=== PATIENT | male | born 1950 | race Caucasian/White ===

== ENCOUNTER 2021-05-30 10:53 | Emergency (ER) | payer OTHER, MEDICARE, SELFPAY ==
[2021-05-30 11:09] VITALS: BP 222/94; PULSE 72; RESP 16; TEMP 36.8; O2SAT 97; BMI 23.0
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
--- NOTE | 2021-05-30 11:42 | CT_ITS ---
WS: [id number] CT ABDOMEN PELVIS TECHNIQUE: Contrast-enhanced CT of the abdomen and pelvis with coronal and sagittal reformatted image s. CLINICAL INFORMATION: bilateral inguinal hernias COMPARISON: None. DLP: 1170.[address] scans at [facility] use at least one of these dose optimization techniques: automated e xposure control; mA and/or kV adjustment per patient size (includes targeted exams where dose is matc hed to clinical indication); or iterative reconstruction. FINDINGS: Bilateral inguinal hernias containing nonobstructed loops of colon extending into the scrotum. No geovanna dence of ischemia or fluid. No evidence of bowel obstruction or pneumatosis. Diffuse fatty infiltration of the liver. RIGHT hepatic cyst measuring 12 mm. Normal portal vein and s plenic vein. Normal gallbladder. Splenic granulomas. Small esophageal hiatal hernia. Emphysematous ch anges in the lung bases. Adrenal glands are normal. Normal renal parenchymal enhancement. No hydronep hrosis. Bilateral renal cysts largest RIGHT upper pole measuring 4.6 x 4.2 CM. Normal pancreatic parenchymal enhancement. Normal celiac and SMA. Mild aortic calcification. Slightly aneurysmal distal abdominal aorta measuring 2.0 x 2.1 cm AP by transverse. No periaortic or inguinal lymphadenopathy. No inguinal lymphadenopathy. Enlarged prostate with calcif ication. Prostate measures 4.7 CM. Small fat-containing umbilical hernia. Disc space narrowing worse L5-S1. Intramedullary fabio and screw fixation RIGHT hip. IMPRESSION: 1. Bilateral inguinal hernias containing loops of colon bilaterally extending into the scrotum. No e vidence of bowel obstruction or ischemia. No pneumatosis. No associated free fluid. 2. No evidence of small or large bowel obstruction. 3. Enlarged prostate measuring 4.8 cm. Recommend correlation PSA. 4. Small esophageal hiatal hernia. 5. Simple bilateral renal cysts. 6. No other acute findings.
[2021-05-30 12:20] LABS: Basophils # 0.1 10^3/uL (0.0-0.1); Basophils % 0.9 %; Eosinophils # 0.3 10^3/uL (0.0-0.8); Eosinophils % 3.7 %; Hematocrit 39.8 % (42.0-52.0); Hemoglobin 13.3 g/dL (11.7-16.6); Lymphocytes # 1.8 10^3/uL (0.8-4.8); Lymphocytes % 21.5 %; Mean Corpuscular HGB Conc 33.4 g/dL (30.0-36.0); Mean Corpuscular Volume 86.7 fl (80-94); Mean Platelet Volume 9.3 fL (7.4-10.4); Monocytes # 0.4 10^3/uL (0.2-0.9); Monocytes % 5.1 %; Neutrophils # 5.86 10^3/uL (1.8-7.7); Neutrophils % 68.4 %; Nucleated Red Blood Cells % 0 %; Platelet Count 284 10^3/cmm (130-400); Red Blood Count 4.59 10^6/uL (4.1-5.3); White Blood Count 8.6 10^3/uL (4.0-10.0)
[2021-05-30 12:35] LABS: Lactate (Lactic Acid level) 1.6 mmol/L (0.5-2.2)
[2021-05-30 12:51] LABS: Alanine Aminotransferase 12 U/L (0-41); Alkaline Phosphatase 78 IU/L (40-130); Anion Gap 17.6 (5-19); Aspartate Amino Transferase 17 U/L (0-40); Blood Urea Nitrogen 20 mg/dL (8-23); Calcium 9.7 mg/dL (8.5-10.5); Carbon Dioxide 22 mmol/L (22-29); Chloride 99 mmol/L (98-107); Globulin 3.7 g/dL (1.3-4.6); Glomerular Filtration Rate 111.5 mL/min (90-130); Glucose 127 mg/dL (65-115); Osmolality Calculated 282 mOsm/kg (285-295); Potassium 4.6 mmol/L (3.5-5.1); Sodium 134 mmol/L (136-145); Total Bilirubin 0.3 mg/dL (0.15-1.2); Total Protein 7.7 g/dL (6.6-8.7)
[2021-05-30] MEDS: iohexol 300 mg/mL 100 mL Btl IV (13:26)
[2021-05-30 14:46] VITALS: BP 160/69; PULSE 50; RESP 14; TEMP 36.6; O2SAT 98
[2021-05-30 15:34] VITALS: BP 164/74; PULSE 60; RESP 15; TEMP 36.7; O2SAT 97
--- NOTE | 2021-05-31 09:10 | DCPLANNER ---
Addendum entered by Lucille Sherman 06/11/21 06:36: Radha from [facility] General Surgery emailed clinical case manager stating that clinic was unable to reach patient to schedule a followup appointment. Phone numbers in chart are disconnected. Original Note: program manager had message to schedule a follow up appointment for patient with general surgery. program manager emailed patients information to Radha Zayas and Jessica at [facility] General Surgery / ENT clinic. Patients information will be printed and reviewed. Clinic will call patient with appointment information.
== END 2021-05-30 15:20 | disposition home or self-care (01) ==
PROVIDERS: Emergency Provider Emergency Medicine; PCP Family Medicine
DX: K40.20 Bilateral inguinal hernia, without obstruction or gangrene, not specified as recurrent (principal); I10 Essential (primary) hypertension; Z89.612 Acquired absence of left leg above knee
CPT/HCPCS: 74177; 80053; 83605; 85025; 99283; Q9967

== ENCOUNTER → 2021-06-17 13:03 | Outpatient (BNVA) | payer OTHER, SELFPAY | PROVIDERS: PCP Family Medicine; Referring Provider Nurse Practitioner; Visit Provider Surgery | DX: K40.20 Bilateral inguinal hernia, without obstruction or gangrene, not specified as recurrent (principal); Z20.822 Contact with and (suspected) exposure to COVID-19 | CPT/HCPCS: 87635 ==

== ENCOUNTER 2021-06-24 06:45 | Day surgery (SDC) | payer OTHER, SELFPAY ==
[2021-06-21 12:30] VITALS: BMI 20.5
[2021-06-24] VITALS (12 sets, daily range): BP systolic 140–189; BP diastolic 57–94; PULSE 52–97; RESP 15–26; TEMP 36.4–36.6; O2SAT 94–99
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
[2021-06-24] MEDS: sodium chloride 0.9% 1,000 ML 30 ML IV (07:30)
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
--- NOTE | 2021-06-24 11:08 | PM.OP ---
Operative Report Date of procedure: June 24, 2021 Pre-op diagnosis: Bilateral reducible inguinal hernia Post-op diagnosis: Bilateral reducible direct inguinal hernia Procedure done: Laparoscopic total extraperitoneal bilateral inguinal hernia repair with mesh Pathology: none sent Surgeon: Jere Arrieta Anesthesia: General Condition: stable Disposition: PACU Procedure: The patient was taken to the operating room. After IV antibiotic was administered, the abdomen was prepped and draped in a sterile manner. Using a 15 blade, a 1.0 cm transverse incision was made infraumbilically on the right side. Subcutaneous tissue was divided using electrocautery and the anterior rectus sheath divided using an 11 blade. The rectus muscle was retracted laterally and the extraperitoneal space identified. A 11 mm port was placed and 12 mm of pneumoperitoneum was created. A 10 mm 30? scope was introduced and the retrorectus space was opened using the camera up to the pubic symphysis and 5 mm ports were placed in the midline, one 2-fingerbreadths above the pubic symphysis and the other midway between these two ports under direct visualization. Blunt dissection was carried out to open up the tissue in the midline and to the pubic symphysis, which was identified. The dissection was then carried laterally on the right where the iliopubic tract was identified. There was no femoral, or obturator hernia noted but there was a direct hernia which was reduced and the hernia sac was everted and secured with Securestraps to reduce seroma development. The inferior epigastric artery was identified and dissection was carried posterior to it and laterally, the space was opened up to the level of the umbilicus superior to the anterior superior iliac spine. I then proceeded to dissect out the spermatic cord and the edge of the peritoneum was peeled back to create a space for placement of the mesh. The dissection was then carried laterally on the left where the iliopubic tract was identified. There was no femoral, or obturator hernia noted but there was a direct hernia which was reduced and the hernia sac was everted and secured with Securestraps to reduce seroma development. The inferior epigastric artery was identified and dissection was carried posterior to it and laterally, the space was opened up to the level of the umbilicus superior to the anterior superior iliac spine. I then proceeded to dissect out the spermatic cord and the edge of the peritoneum was peeled back to create a space for placement of the mesh. 16 x 10cm Surgimax mesh was rolled and introduced through the 10 mm port and then rolled laterally and apposed well against the abdominal wall to cover the myopectineal orifice completely on the right and secured with Securestraps. 16 x 10cm Surgimax mesh was rolled and introduced through the 10 mm port and then rolled laterally and apposed well against the abdominal wall to cover the myopectineal orifice completely on the left and secured with Securestraps. 10 Cc of 0.5% Marcaine was infiltrated into the preperitoneal space. The extraperitoneal space was desufflated under direct visualization to ensure no slippage of hernial sac under the mesh. All ports were removed, the anterior rectus fascia at the infraumbilical port closed using figure of eight 0 Vicryl sutures, subcutaneous tissue approximated using 3-0 Vicryl sutures and skin at all three port sites were closed using running subcuticular 4-0 Monocryl sutures and Dermabond. 10 mL of 0.5% Marcaine was infiltrated at the port sites. The patient was stable throughout the procedure.
[2021-06-24] MEDS: meperidine 50 mg/mL INJ 12.5 MG IVP ×2 (11:22→11:25)
--- NOTE | 2021-06-24 11:27 | ECG_ITS ---
[facility] Test Date: 2021-06-24 Pat Name: Abundio Bello Department: Room: Gender: Male Manager Global: : 1950 Requested By: Britany Mccormick Order Number: [id number] Jennifer MD: Kike Escamilla M.D. Measurements Intervals [place] Rate: 54 P: 37 IN: 163 QRS: 33 QRSD: 101 T: 22 QT: 418 QTc: 397 Interpretive Statements SINUS BRADYCARDIA WITH SINUS ARRHYTHMIA No previous ECG available for comparison Electronically Signed On 06-24-2021 22:05:28 CDT by Kike Escamilla M.D. [id number]
--- NOTE | 2021-06-24 15:02 | ANE.PACU2 ---
Inpatient post-anesthesia follow up: Airway intact: Yes Vital signs: Temperature 97.9 F Pulse Rate 53 Respiratory Rate 16 Blood Pressure 150/59 Pulse Oximetry 94 Oxygen Delivery Me thod Room Air Oxygen Flow Rate 2 Fraction of Inspir ed Oxygen Hydration adequate: Yes Nausea and vomiting: Yes Pain level: 3 Mental status: Baseline
== END 2021-06-24 12:53 | disposition home or self-care (01) ==
PROVIDERS: PCP Family Medicine; Visit Provider Surgery
PROC: (CPT 49650; principal; 2021-06-24 08:05)
DX: K40.20 Bilateral inguinal hernia, without obstruction or gangrene, not specified as recurrent (principal); F17.210 Nicotine dependence, cigarettes, uncomplicated
CPT/HCPCS: 49650; 93005; C1781; J0690; J2175; J2270; J2405; J2704; J2710; J3010; J3490; J7030

== ENCOUNTER → 2021-07-09 10:08 | Outpatient (BNVA) | payer OTHER, SELFPAY | PROVIDERS: PCP Family Medicine; Visit Provider Surgery | DX: Z98.890 Other specified postprocedural states (principal); Z48.89 Encounter for other specified surgical aftercare; F17.210 Nicotine dependence, cigarettes, uncomplicated ==

== ENCOUNTER 2021-07-30 13:35 | Outpatient (RCR) | payer OTHER, SELFPAY | END 2021-08-27 23:59 | disposition home or self-care (01) | LOC: SPT 13:35 | PROVIDERS: PCP Family Medicine; Referring Provider Nurse Practitioner; Visit Provider Nurse Practitioner | DX: R26.9 Unspecified abnormalities of gait and mobility (principal) | CPT/HCPCS: 97161 ==

== ENCOUNTER → 2021-12-31 11:06 | Outpatient (BNVA) | payer OTHER, SELFPAY | PROVIDERS: PCP Family Medicine; Referring Provider Nurse Practitioner; Visit Provider Student in an Organized Health Care Education/Training Program | DX: M75.101 Unspecified rotator cuff tear or rupture of right shoulder, not specified as traumatic (principal); M12.811 Other specific arthropathies, not elsewhere classified, right shoulder | CPT/HCPCS: 20610; 73030; 99203; J3301 ==

== ENCOUNTER → 2022-02-11 13:18 | Outpatient (BNVA) | payer OTHER, SELFPAY | PROVIDERS: PCP Family Medicine; Visit Provider Student in an Organized Health Care Education/Training Program | DX: M75.101 Unspecified rotator cuff tear or rupture of right shoulder, not specified as traumatic (principal) | CPT/HCPCS: 99213 ==

== ENCOUNTER → 2023-07-15 07:51 | Outpatient (BNVA) | payer OTHER, SELFPAY | PROVIDERS: PCP Family Medicine; Visit Provider Dermatology | DX: C44.519 Basal cell carcinoma of skin of other part of trunk (principal) | CPT/HCPCS: 11603; 13101 ==

== ENCOUNTER 2023-07-23 09:32 | Outpatient (CLI) | payer OTHER, SELFPAY ==
--- NOTE | 2023-07-23 09:43 | US_ITS ---
WS: [id number] RENAL ULTRASOUND HISTORY: LESION ON L KIDNEY COMPARISON: None available. TECHNIQUE: 2-D and color Doppler imaging of the kidney submitted. Right kidney: 9.1 cm x 5.0 cm x 5.5 cm. Cortex: 1.0 cm Normal size kidney. Lobulated cyst or 2 adjacent cyst from the upper pole. The largest cyst measures 3.4 x 3.8 x 4.4 cm. No solid mass. No obstruction. Left kidney: 10.3 cm x 5.1 cm x 5.1 cm. Cortex: 1.2 cm Cyst lower pole measures 2.3 x 2.3 x 2.2 cm. No solid mass and no obstruction. Several small cysts. P resent on the prior CT from 05/30/2021. Not all of these cysts are identified by ultrasound. Aorta: Normal. Urinary Bladder: Normal distention. Enlarged heterogeneous prostate gland with central calcification. Prostate measures 3.8 x 4.2 x 3.9 c m. IMPRESSION: 1. Bilateral renal cysts. No solid mass. 2. No hydronephrosis.
== END 2023-07-23 09:33 | disposition home or self-care (01) ==
LOC: RAD 09:33
PROVIDERS: PCP Nurse Practitioner; Visit Provider Nurse Practitioner
DX: N28.9 Disorder of kidney and ureter, unspecified (principal); N28.1 Cyst of kidney, acquired
CPT/HCPCS: 76770

== ENCOUNTER 2023-09-14 14:42 | Outpatient (CLI) | payer OTHER, SELFPAY ==
--- NOTE | 2023-09-14 14:45 | XR_ITS ---
WS: [id number] DEXA (DUAL ENERGY X-RAY ABSORPTIOMETRY) Bone mineral density was performed using a [employer] machine. HISTORY: thoracic fracture new with no injury COMPARISON: None available. Lumbar spine BMD (L1-L4): 0.712 g/cm2 T score: -4.2 Z score: -3.2 Total hip BMD: Right: 0.826. T score: -1.7 Z score: -0.7 Male patient. XR/XR DEXA axial skeleton* [id number] IMPRESSION: OSTEOPOROSIS.
== END 2023-09-14 14:43 | disposition home or self-care (01) ==
LOC: RAD 14:43
PROVIDERS: PCP Nurse Practitioner; Visit Provider Nurse Practitioner
DX: M81.0 Age-related osteoporosis without current pathological fracture (principal)
CPT/HCPCS: 77080

== ENCOUNTER 2023-10-05 07:56 | Outpatient (CLI) | payer OTHER, SELFPAY ==
--- NOTE | 2023-10-05 08:07 | MR_ITS ---
WS: [id number] MRI THORACIC SPINE WITHOUT CONTRAST TECHNIQUE: Sagittal T1, T2 and STIR imaging. Axial T2 imaging. Noncontrast imaging obtained. CLINICAL INFORMATION: T SPINE COMPARISON: None. FINDINGS: Moderate thoracic kyphosis. Anterior wedging T7 vertebral body with loss of approximately 50% vertebr al body height anteriorly. No significant retropulsion. Only minimal edema at this level compatible w ith subacute to chronic compression. No other acute appearing compression fractures. A few small hemangiomas at T6 and L1. Cord signal is normal. Partially evaluated RIGHT greater than LEFT renal cysts. Normal caliber thoracic aorta. Moderate face t arthropathy lower thoracic spine. MR/MR thoracic spin wo con* [id number] IMPRESSION: 1. Biconcave compression fracture T7 with loss of approximately 50% vertebral body height anteriorly with anterior wedging. No retropulsion. Only mild associ ated edema likely due to subacute to chronic compression fracture. Metastatic d isease not entirely excluded. No extraosseous components. Bone scan can be used in further evaluation. 2. Few incidental hemangiomas. 3. No other acute findings.
== END 2023-10-05 07:57 | disposition home or self-care (01) ==
LOC: RAD 07:56
PROVIDERS: PCP Nurse Practitioner; Visit Provider Nurse Practitioner
DX: M48.54XA Collapsed vertebra, not elsewhere classified, thoracic region, initial encounter for fracture (principal); M40.204 Unspecified kyphosis, thoracic region; Q61.02 Congenital multiple renal cysts; M46.94 Unspecified inflammatory spondylopathy, thoracic region
CPT/HCPCS: 72146

== ENCOUNTER → 2023-12-17 13:53 | Outpatient (BNVA) | payer OTHER, SELFPAY | PROVIDERS: PCP Nurse Practitioner; Visit Provider Nurse Practitioner Family | DX: D48.5 Neoplasm of uncertain behavior of skin (principal); L57.0 Actinic keratosis; L82.1 Other seborrheic keratosis; L57.8 Other skin changes due to chronic exposure to nonionizing radiation; Z85.828 Personal history of other malignant neoplasm of skin | CPT/HCPCS: 11102; 17000; 99213 ==

== ENCOUNTER → 2023-12-31 10:57 | Outpatient (BNVA) | payer OTHER, SELFPAY | PROVIDERS: PCP Nurse Practitioner; Visit Provider Dermatology | DX: D04.61 Carcinoma in situ of skin of right upper limb, including shoulder (principal); L82.1 Other seborrheic keratosis; L57.8 Other skin changes due to chronic exposure to nonionizing radiation; Z85.828 Personal history of other malignant neoplasm of skin | CPT/HCPCS: 17262; 99213 ==

== ENCOUNTER → 2024-06-21 15:45 | Outpatient (BNVA) | payer OTHER, SELFPAY | PROVIDERS: PCP Nurse Practitioner; Visit Provider Nurse Practitioner Family | DX: L82.1 Other seborrheic keratosis (principal); L57.8 Other skin changes due to chronic exposure to nonionizing radiation; Z08 Encounter for follow-up examination after completed treatment for malignant neoplasm; Z85.828 Personal history of other malignant neoplasm of skin; L57.0 Actinic keratosis | CPT/HCPCS: 17000; 99213 ==

== ENCOUNTER → 2025-01-06 14:48 | Outpatient (BNVA) | payer OTHER, SELFPAY | PROVIDERS: PCP Nurse Practitioner; Visit Provider Nurse Practitioner Family | DX: L82.1 Other seborrheic keratosis (principal); L57.8 Other skin changes due to chronic exposure to nonionizing radiation; Z08 Encounter for follow-up examination after completed treatment for malignant neoplasm; Z85.828 Personal history of other malignant neoplasm of skin; L57.0 Actinic keratosis | CPT/HCPCS: 17000; 99213 ==